=== PATIENT | male | born 1965 | race Caucasian/White ===

== ENCOUNTER 2016-10-19 05:34 | Emergency (ER) | payer OTHER ==
--- NOTE | ~2016-10-19 | CR229 ---
[facility] A Service of [facility] RADIOLOGY TEXT RESULTS PATIENT: BALTAZAR MAURICIO LOCATION: KATHY : 67 UNIT #: [id number] AGE: [address]: Michael Blackwell MD SEX: M ORDER DR: [id number] [facility] [address]. [place], [place] [address] [id number] MR#: [id number] Acc #: [id number] NAME: BALTAZAR MAURICIO : 1965 SEX: M STUDY DATE/TIME: 10/19/2016 5:30 UNIT: KATHY ROOM: STUDY DESCRIPTION: CR Shoulder Min 2 View Lt Attending Physician: Michael Blackwell M.D. Ordering Physician: Michael Blackwell M.D. Primary Care Physician: Eduardo Isaac M.D. MEDICAL IMAGING REPORT This report is preliminary unless electronic signature is present EXAM 3 views left shoulder. DATE: 10/19/2016 HISTORY Left shoulder pain for 2 days. No known injury. COMPARISON Left shoulder radiographs 05/12/2016. FINDINGS No fracture. No joint dislocation. There is mild degenerative spurring at the acromioclavicular joint which is similar to prior exam. No displaced left rib fracture. Imaged left lung appears clear. IMPRESSION 1. Mild degenerative spurring of the left acromioclavicular joint. No acute abnormality of the left shoulder and no significant change compared to 05/12/2016. Dictated by... Luisa Brown M.D. THIS IS AN ELECTRONICALLY VERIFIED REPORT Luisa Brown M.D. at 10/20/2016 9:59 PM [facility] TD: 10/19/2016 08:48 JOB #: [id number] [facility] A Service [facility] RADIOLOGY TEXT RESULTS PATIENT: BALTAZAR MAURICIO LOCATION: [facility] : 67 UNIT #: [id number] AGE: [address]: Michael Blackwell MD SEX: M ORDER DR: MEDICAL IMAGING REPORT Page 1 of 1 COPY
[~2016-10-19 05:34] MED LIST: ALBUTEROL17 GM INH; AMLODIPINE BESYL5 MG PO; AMLODIPINE PO; ATENOLOL25 MG PO; CELEXA10 MG PO; DICLOFENAC PO; FLEXERIL PO; FLEXERIL10 MG PO; HYDROCODONE-APA1 T57 PO; INDOMETHACIN50 MG PO; KEFLEX500 MG PO; LINZESS145 MCG PO; LIPITOR40 MG PO; LORTAB 5/500 TA1 TA1 PO; MELOXICAM15 MG PO; MIRALAX119 GM PO; NEURONTIN300 MG PO; NO MEDICATIONS; OMEPRAZOLE20 M2 PO; PAROXETINE HCL20 M1 PO; PERCOCET 10/31 UDTA1 PO; PERCOCET 7.5-31 EACH PO; ROBAXIN 750750 M1 PO; SYMBICORT 160/4.6 G1 INH; SYMBICORT INH; TENORMIN25 MG PO; TOPIRAMATE100 MG PO; TOPIRAMATE50 MG PO; TRAMADOL HCL E200 MG PO; TRAZODONE HCL100 MG PO; ULTRAM ER100 MG PO; ULTRAM PO; VENTOLIN5 MG/ML INH; XARELTO15 MG PO; ZYLOPRIM100 MG PO
[2016-12-15] MEDS ORDERED: HYDROCODON-ACE1 EAC9 PO (09:41)
[2016-12-15] MEDS ORDERED: CITALOPRAM HBR40 M1 PO (09:41)
[2016-12-15] MEDS ORDERED: DOXEPIN PO (09:46)
[2016-12-15] MEDS ORDERED: BREO ELLIPTA 11 EACH INH (09:46)
[2016-12-15] MEDS ORDERED: ALBUTEROL17 GM INH (09:47)
[2016-12-15] MEDS ORDERED: ROBAXIN 750750 MG PO (09:47)
== END 2016-10-19 06:45 | disposition home or self-care (01) ==
LOC: CED 05:34
DX: S43.402A Unspecified sprain of left shoulder joint, initial encounter (principal); J44.9 Chronic obstructive pulmonary disease, unspecified; K21.9 Gastro-esophageal reflux disease without esophagitis; E78.5 Hyperlipidemia, unspecified; I10 Essential (primary) hypertension; F17.200 Nicotine dependence, unspecified, uncomplicated; X58.XXXA Exposure to other specified factors, initial encounter
CPT/HCPCS: 73030; 96372; 99283; J1170

== ENCOUNTER → 2016-12-15 | Outpatient (CLI) | payer OTHER ==
[~2016-12-15] MED LIST changes: +BREO ELLIPTA 11 EACH INH; +CITALOPRAM HBR40 M1 PO; +DOXEPIN PO; +HYDROCODON-ACE1 EAC9 PO; +ROBAXIN 750750 MG PO
--- NOTE | ~2016-12-15 | EKG ---
PATIENT: BALTAZAR MAURICIO UNIT #: [id number] Ventricular Rate: 58 BPM Atrial Rate: 58 BPM P-R Interval: 172 ms QRS Duration: 98 ms Q-T Interval: 426 ms QTC Calculation(Bezet): 418 ms P Austin: 55 degrees Calculated R Austin: 65 degrees Calculated T Austin: 60 degrees Diagnosis Line: Sinus bradycardia Diagnosis Line: Otherwise normal ECG Diagnosis Line: When compared with ECG of 24-JUL-2016 20:32, Diagnosis Line: No significant change was found Diagnosis Line: Confirmed by ANI COLLINS MD ([id number]) on Diagnosis Line: 12/16/2016 10:53:14 AM INTERPRETING JAMEL BERNABE
[2016-12-15 09:54] LABS: HEMATOCRIT 52.1 % (38.0-50.0); HEMOGLOBIN 16.9 gm/dL (13.0-16.0); MEAN CELL VOLUME 92.1 FL (83-96); MEAN CORPUSCULAR HEMOGLOBIN 29.9 PG (28-34); MEAN CORPUSCULAR HGB CONC 32.5 g/dL (30-36); RED BLOOD COUNT 5.65 X10e (3.90-5.60); RED CELL DISTRIBUTION WIDTH 15.1 % (11.0-15.5); WHITE BLOOD COUNT 7.9 X10e3 (4.0-10.5)
[2016-12-15 10:22] LABS: CALCIUM SERUM 9.2 mg/dL (8.4-10.2); GLOM FILT RATE Estimated 87.4 mL/min (>60)
== END | disposition home or self-care (01) ==
LOC: EDSTATUS 09:00 → CAMB 09:00
PROVIDERS: Orthopaedic Surgery
DX: Z01.818 Encounter for other preprocedural examination (principal); R00.1 Bradycardia, unspecified
CPT/HCPCS: 36415; 80048; 85027; 93005

== ENCOUNTER → 2016-12-17 | Day surgery (SDC) | payer OTHER ==
--- NOTE | ~2016-12-17 | OR ---
Unit #: [id number] #: [id number] Patient: BALTAZAR MAURICIO [id number] [address] [address] [id number] O MR#: [id number] NAME: BALTAZAR MAURICIO ROOM: Date of Procedure: 12/17/2016 Admission Date: 12/17/2016 Surgeon: Luis Fernando Bennett M.D. : 1965 Attending Physician: Luis Fernando Bennett M.D. Primary Care Physician: Stephane Mariee M.D. OPERATIVE REPORT PREOPERATIVE DIAGNOSES 1. Left shoulder rotator cuff tear. 2. Left shoulder acromioclavicular joint arthrosis. POSTOPERATIVE DIAGNOSES 1. Left shoulder rotator cuff tear. 2. Left shoulder acromioclavicular joint arthrosis. PROCEDURE PERFORMED 1. Left shoulder arthroscopic rotator [place], [address]. 2. Left shoulder open distal clavicle excision. HADOOP APPLICATION DEVELOPER Michael Geronimo CFA. ANESTHESIA General endotracheal. COMPLICATIONS None. SPECIMEN None. DRAINS None. SURGICAL IMPLANTS 1. Single 2.9 mm JuggerKnot suture anchor. 2. Single 4.5 mm PEEK [place] Knotless lateral row anchor. INDICATION FOR PROCEDURE Mr. Mauricio is a 51-year-old gentleman with persistent left shoulder pain that failed to respond to conservative treatment. MRI confirmed anterior supraspinatus rotator cuff tear along with severe acromioclavicular joint arthrosis. Due to failure to respond to conservative treatment, the patient elected surgical intervention. Rotator cuff repair was offered to the patient. Risks, benefits, and alternatives of the surgery were discussed with the patient. Informed consent was obtained. Risks include, but not limited to, infection, bleeding, nerve injury, blood clots, risks associated with anesthesia, need for further surgery, persistent pain, retear, and possibly . Unit #: [id number] #: [id number] Patient: BALTAZAR MAURICIO DESCRIPTION OF PROCEDURE On 12/17/2016, the patient was seen in preoperative holding area, where his surgical site was marked. Preoperative antibiotics were received. H and P and consent updated. Preoperative block was performed. He was taken to the operating room and provided general anesthesia. Carefully moved to the beach chair position. All bony prominences were well padded. Head and neck kept in neutral position at all times. Left upper extremity was then prepped and draped in typical sterile fashion. Time-out performed confirming the correct surgical site and procedure. At this point, a standard posterior portal was created with an 11-blade. A blunt trocar was carefully inserted into the glenohumeral joint. Full inventory of the shoulder performed. Significant synovitis noted within the rotator interval. Anterior portal created through the rotator interval. Cautery device used to debride the synovitis. Biceps tendon intact. Undersurface rotator cuff tearing noted along the supraspinatus. Mild degenerative changes of the glenohumeral joint. No full-thickness cartilage loss. No loose bodies. Labrum intact. Camera was then placed in subacromial space. Significant bursitis noted. This was thoroughly debrided. Direct lateral portal was created with an 11-blade. Cannula placed. Once the bursectomy was completed, focus was placed on the rotator cuff. Anterior supraspinatus rotator cuff tear was identified. It was full-thickness. Tuberosity was then debrided. A small portal just off the acromion was made to allow for a Juggerknot suture anchor to be placed within the footprint of the tuberosity. It was placed in standard fashion. Sutures were then shuttled appropriately. Horizontal mattress style repair of the rotator cuff performed. Four limbs of the sutures were tied down. They were then brought over to a lateral row anchor and used to complete the double row fixation. The sutures were cut flush with the knot. Final images were taken confirming appropriate repair of the rotator cuff. Focus was now placed on the distal clavicle excision. A longitudinal incision was made over the acromioclavicular joint. Incision was taken down through the skin and subcutaneous tissues. The joint capsule was split in a longitudinal fashion and reflected both anterior and posterior to the distal clavicle. Retractors were placed. Significant arthritic joint noted. A saw was then used to remove approximately 1 cm of the distal clavicle creating 1 cm space with the end of the clavicle to the acromion. Shoulder range of motion performed with no impingement. Wound was then thoroughly irrigated. Deep tissue closed with 0 Vicryl suture followed by 2-0 Vicryl for subcutaneous tissues. Nylon for skin. Xeroform, 4x4s, ABD pad, tape, and sling immobilizer were placed. The patient was taken to PACU postoperatively in stable condition. POSTOPERATIVE PLAN The patient will be discharged home. Follow up in the office in 7 to 14 days. He will have standard rotator cuff protocol. No complications encountered during the surgical procedure. Dictated by... Marcelina Patton/andra Unit #: [id number] #: [id number] Patient: BALTAZAR MAURICIO TD: 12/18/2016 06:53 JOB #: [id number] OPERATIVE REPORT Page 1 of 1 X X PROCEDURE OPERATIVE NOTE
== END | disposition home or self-care (01) ==
LOC: CSUR 07:04
DX: M75.122 Complete rotator cuff tear or rupture of left shoulder, not specified as traumatic (principal); M19.011 Primary osteoarthritis, right shoulder; K21.9 Gastro-esophageal reflux disease without esophagitis; F17.210 Nicotine dependence, cigarettes, uncomplicated; M19.90 Unspecified osteoarthritis, unspecified site; G43.909 Migraine, unspecified, not intractable, without status migrainosus; J44.9 Chronic obstructive pulmonary disease, unspecified; G89.29 Other chronic pain; I45.6 Pre-excitation syndrome; I10 Essential (primary) hypertension; Z88.8 Allergy status to other drugs, medicaments and biological substances; Z98.890 Other specified postprocedural states; Z79.899 Other long term (current) drug therapy
CPT/HCPCS: C1713; J0171; J0330; J0690; J2250; J2795; J3010

== ENCOUNTER → 2017-01-04 | Outpatient (CLI) | payer OTHER | END | disposition home or self-care (01) | LOC: CRC 10:31 | DX: J44.9 Chronic obstructive pulmonary disease, unspecified (principal) | CPT/HCPCS: 94060; 94726; 94729 ==